=== PATIENT | female | born 1975 | race African-American/Black ===

== ENCOUNTER 2019-04-18 05:29 | Observation (INO) | payer OTHER ==
[~2019-04-18] VITALS: Ht 177.8 cm; Wt 74.8 kg
[2019-04-18] VITALS (15 sets, daily range): BP systolic 102–135; BP diastolic 54–93
[~2019-04-18 05:29] MED LIST: AMBIEN5 MG ORAL; BENADRYL25 MG ORAL; SYNTHROID100 MCG ORAL
[2019-04-18] MEDS ORDERED: Zemuron 50mg/5ml Inj IV ONE (06:28)
[2019-04-18] MEDS ORDERED: Chloraseptic Spray 20mL Bottle ORAL PRN (06:30)
[2019-04-18] MEDS ORDERED: HYDROmorphone 1mg/ml Carpuject SUBQ PRN (06:30)
[2019-04-18] MEDS ORDERED: LR 1000ml 1,000 ML IVLG SCH (06:32)
--- NOTE | 2019-04-18 06:33 | Anethesia Preoperative Eval ---
Anesthesia Pre-op PMH/ROS General Date of Evaluation: Apr 18, 2019 Time of Evaluation: 07:06 Anesthesiologist: Brien ASA Score: ASA 2 Mallampati Score Class I : Soft palate, uvula, fauces, pillars visible Class II: Soft palate, uvula, fauces visible Class III: Soft palate, base of uvula visible Class IV: Only hard plate visible Mallampati Classification: Class II Surgeon: Kenisha Diagnosis: Neck Pain Surgical Procedure: ACDF C5-6 Anesthesia History: none Family History: no anesthesia problems Allergies: Coded Allergies: No Known Allergies (Unverified , 04/17/19) Medications: see eMAR Patient NPO?: Yes NPO Date: Apr 17, 2019 NPO Time: 2344 Past Medical History Neurologic/Psychiatric: Reports: depression/anxiety Endocrine: Reports: hypothyroidism PSxH Narrative: Knee Sx, Cervical Spine SX Anesthesia Pre-op Phys. Exam Physician Exam Last Vital Signs Date Time Temp Pulse Resp B/P (MAP) Pulse Ox O2 Delivery O2 Flow Rate FiO2 04/18/19 06:08 Room Air 04/18/19 06:05 97.6 65 18 123/79 (94) 98 Constitutional: NAD Neurologic: CN 2-12 intact Cardiovascular: RRR Respiratory: CTA Gastrointestinal: S/NT/ND Airway Exam Mallampati Score: Class II MO: full ROM: full Teeth: intact Anesthesia Pre-op A/P Labs Urine Test Test 04/18/19 05:40 Urine HCG, Qualitative Pending Risk Assessment & Plan Assessment: ASA 2 Plan: GA, SED, GlideScope Go Status Change Before Surgery: No Pre-Antibiotics Dru Grams Ancef IV Given Within 1 Hr of Incision: Yes Time Given: 07:36 Dennys Zaman MD Apr 18, 2019 06:33
[2019-04-18] MEDS ORDERED: Bacitracin 50000 Units Vial ONE (06:36)
[2019-04-18] MEDS ORDERED: Thrombin 5000 units TOPIC ONE ×2 (06:36→07:20)
[2019-04-18] MEDS ORDERED: Bupivacaine 0.5% Inj 30 ml vial INJ ONE (06:36)
[2019-04-18] MEDS ORDERED: Gelfoam Size TOPIC ONE (06:36)
[2019-04-18] MEDS ORDERED: Sodium Chloride 10ml vial INJ ONE (06:44)
[2019-04-18] MEDS ORDERED: Lidocaine 1% MPF 10mg/ml 5ml ONE (06:44)
[2019-04-18] MEDS ORDERED: Dexamethasone 4mg/ml vial ONE (06:44)
[2019-04-18] MEDS ORDERED: Lidocaine 1% Plain 30 ml INJ ONE (06:44)
[2019-04-18] MEDS ORDERED: fentaNYL 100 mcg/2 mL IV PRN (06:45)
[2019-04-18] MEDS ORDERED: Hydromorphone 0.5mg/0.5ml inj IVP PRN (06:45)
[2019-04-18] MEDS ORDERED: LORazepam Inj 2mg/ml 1ml IV PRN (06:45)
[2019-04-18] MEDS ORDERED: Ketorolac 30mg Inj IV PRN ×2 (06:45)
[2019-04-18] MEDS ORDERED: Meperidine 50mg/ml Inj(FOR RIGORS ONLY) IVP PRN (06:45)
[2019-04-18] MEDS ORDERED: oxyCODONE HCL/Acetaminophen 5/325mg ORAL PRN (06:45)
[2019-04-18] MEDS ORDERED: HYDROcodone/Acetamin 5/325 tab ORAL PRN (06:45)
[2019-04-18] MEDS ORDERED: DiphenhydrAMINE 50mg/ml Inj IVP PRN (06:45)
[2019-04-18] MEDS ORDERED: Midazolam 2mg/2ml Inj IVP PRN (06:45)
[2019-04-18] MEDS ORDERED: Atropine Sulfate 0.4mg/ml inj IVP PRN (06:45)
[2019-04-18] MEDS ORDERED: HYDROcodone/Acetamin 7.5/325 tab ORAL PRN (06:45)
[2019-04-18] MEDS ORDERED: Acetaminophen (Non formulary) 100 ML IV ONE (06:45)
[2019-04-18] MEDS ORDERED: fentaNYL 100 mcg/2 mL IV ONE ×2 (06:48→08:25)
[2019-04-18] MEDS ORDERED: LR 1000ml ONE (07:00)
[2019-04-18] MEDS ORDERED: ceFAZolin sod 1 GM in NS 55 ML IVPB ONE (07:00)
[2019-04-18] MEDS ORDERED: Propofol 1,000mg/ 100ml btl IV ONE (07:00)
[2019-04-18] MEDS ORDERED: Dexamethasone 20mg/5ml IVP ONE (07:00)
[2019-04-18] MEDS ORDERED: Labetalol 5mg/ml 20ml vial IV ONE (07:00)
[2019-04-18] MEDS ORDERED: Sterile Water Irrig 1000ml IRRIG ONE (07:00)
--- NOTE | 2019-04-18 07:06 | Pre-Procedure Note/Attestation ---
Pre-Procedure Note/Attestation Complete Prior to Procedure Planned Procedure: not applicable Procedure Narrative: Removal C5-C6 ADR. ACDF C5-C6 with anterior internal plate fixation. Attestation I attest that I discussed the nature of the procedure; its benefits; risks and complications; and alternatives (and the risks and benefits of such alternatives ), prior to the procedure, with the patient (or the patient's legal appeals representative). I attest that, if there was a reasonable possibility of needing a blood transfusion, the patient (or the patient's legal appeals representative) was given the [facility] standardized written summary, pursuant to the Facundo Damien Blood Safety Act ([place] Health and Safety Code # 1645, as amended). I attest that I re-evaluated the patient just prior to the surgery and that there has been no change in the patient's H&P, except as documented below: Herb De MD Apr 18, 2019 07:06
--- NOTE | 2019-04-18 07:07 | Immediate Post-Op Evaluation ---
Immediate Post-Op Evalulation Immediate Post-Op Evalulation Procedure: C5-6 ACDF Date of Evaluation: Apr 18, 2019 Time of Evaluation: 10:09 IV Fluids: 900 LR Blood Products: 0 Estimated Blood Loss: 25 Urinary Output: 0 Blood Pressure Systolic: 118 Blood Pressure Diastolic: 93 Pulse Rate: 82 Respiratory Rate: 16 O2 Sat by Pulse Oximetry: 100 Temperature (Fahrenheit): 97.3 Pain Score (1-10): 2 Nausea: No Vomiting: No Complications 0 Patient Status: awake, reacts, patent, extubated, none Hydration Status: adequate Dru Grams Ancef IV Given Within 1 Hr of Incision: Yes Time Given: 07:36 Dennys Zaman MD Apr 18, 2019 07:07
[2019-04-18] MEDS ORDERED: NS Irrig 1000ml IRRIG ONE (07:11)
[2019-04-18] MEDS ORDERED: Neostigmine 1mg/ml 10ml Inj ONE (08:57)
[2019-04-18] MEDS ORDERED: Glycopyrrolate 0.2mg/ml 1ml Vial ONE (08:57)
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
--- NOTE | 2019-04-18 09:35 | Brief Operative Note ---
Immediate Post Operative Note Operative Note Pre-op Diagnosis: Post trauma ADR instability Procedure: Operation through scar tissue Removal ADR ACDF Anterior internal plate fixation. SSEP Xray Magnification Post-op Diagnosis: same as pre-op Findings: consistent w/pre-op dx studies Surgeon: Kenisha GO Additional Surgeons: Frank GO Anesthesiologist: Austyn GO Anesthesia: general Specimen: yes Complications: none Condition: stable Fluids: anesthesia Estimated Blood Loss: minimal Drains: none Implant(s) used?: Yes Herb De MD Apr 18, 2019 09:35
[2019-04-18] MEDS ORDERED: Naloxone 0.4mg/ml Inj IVP PRN (09:45)
--- NOTE | 2019-04-18 11:30 | NUR ---
NURSE NOTES: Received patient from PACU via bed to 311-2, in stable condition. Report received from Indy EATON. O2 2L NC in place, no distress. IVF infusing to LH as ordered. Anterior surgical neck dressing CDI, ice pack applied. Bilateral SCDS on. CMS+, hand grasps, pedal pushes, equal strong, skin warm, no NT. Pain 6/10 to posterior upper back area, will medicate as ordered. No NV. Will start clear liquid diet. Reoriented patient to room and call light for safety. Bed in lowest position, will continue to monitor.
[2019-04-18] MEDS: D5 1/2NS 1,000 ML IV SCH ×2 (12:15→23:02)
--- NOTE | 2019-04-18 12:20 | Diagnostic Imaging Report ---
Indication: Intraoperative imaging COMPARISON: None FINDINGS: Multiple fluoroscopic images were obtained intraoperatively. Localization images followed by anterior discectomy and fusion at C5-6 demonstrated. IMPRESSION: Intraoperative imaging as described above
[2019-04-18] MEDS: HYDROmorphone 1mg/ml Carpuject SUBQ PRN ×3 (12:45→23:14)
--- NOTE | 2019-04-18 13:15 | Operative Note - Dictated ---
DATE OF OPERATION: 04/18/2019 PRIMARY SURGEON: Herb De, Ph.D., M.D. SOIL CHECKER SURGEON: Gregorio Marie M.D. ANESTHESIOLOGIST: Dennys Zaman M.D. ANESTHESIA: General with intubation. 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 OPERATIVE PROCEDURE: Operation a scar tissue. Removal of artificial disc replacement C5-C6. Interbody reconstruction with 6 mm titanium interbody graft with bioactive material placement. Anterior internal plate fixation C5-C6. SSEP monitoring high-powered dissection magnification. Intraoperative fluoroscopy interpreted by surgeons. ESTIMATED BLOOD LOSS: Minimal. SPECIMEN: Removed artificial disc to pathology, gross only. COMPLICATIONS: None. POSTOP CONDITION: Good/stable. PROCEDURE IN DETAIL: The patient was brought to the operating room and in the supine position, general anesthesia with intubation was induced. After appropriately positioning and administration of IV Decadron and antibiotics 30 minutes prior to incision time. The correct level for incision placement was determined with a marker taped to the contralateral (right) aspect of the neck and cross-table image obtained and interpreted by surgeon, marking the appropriate interval for incision placement. Position for incision was marked with a sterile marking pen on the left lateral aspect of the neck over the appropriate interval. Marker on the right side neck was removed, the anterior cervical spine was sterilely prepped and draped free in usual sterile fashion. A transverse incision in the skin fold as appropriately marked was sharply placed through dermis and epidermis. Electrocautery dissection was carried through the subcutaneous tissue to the level of the platysmas muscle that was identified, isolated, and transected in line with the incision. Blunt dissection was carried medial to the left sternocleidomastoid muscle and the carotid sheath through the deep cervical and pretracheal fascia. Scar tissue was encountered-dense anterior to the cervical spine. Elevation was undertaken right and left of midline over the artificial disc replacement that was 3 mm subluxed anteriorly at the inferior C5 vertebral body interval. Moderate osteophyte was also formed anterior C5 vertebral body. The plastic spacer between the cephalad and inferior artificial disc plates was drilled to a depth of 1/2. Utilizing an osteotome, the interval was developed between the cephalad and caudad plates, bone interface. The cephalad plate was loose. The artificial disc replacement was removed en bloc without complications. SSEP monitoring stable. Under high-powered magnification, the posterior osteophyte noted on a preoperative basis was removed. No dural tears or leaks noted at any time during the procedure. SSEP monitoring normal at all times. Wound was irrigated with antibiotic-containing saline. The appropriate trial was utilized with determination for 6 mm titanium implant. The appropriate implant was opened under sterile conditions, packed with osteopromotive material (Bio-4). The graft was introduced into position under direct high-powered magnification observation. Cross-table image was obtained demonstrating excellent alignment and positioning. The implant introducer with a noted stop was removed. The implant was noted to encounter sunk 1 mm from the anterior aspect of the C5/C6 vertebral bodies. Prior to implant introduction, the anterior osteophyte on the inferior C5 was removed with Midas Adán bur dissection. Wound was irrigated with antibiotic-containing saline. Anterior internal plate fixation was undertaken with 14 mm screws in a compressive fashion. AP and lateral radiographs were obtained and recorded demonstrating excellent alignment and position. The patient is stable. Exploration of the wound did not reveal any obvious excoriation or laceration of vital structures. Wound was re-irrigated with antibiotic-containing saline. FloSeal applied. Sequential reapproximation of the platysmas muscle and subcuticular closure of the dermis/epidermis. Surgical strips placed transversely followed with a sterile bandage applied and maintained in place with tape. The patient was awakened, extubated in the operating room, and transported to postop recovery in good stable condition. Herb De M.D. DR: CARMEN JOB#: [id number] CC:
--- NOTE | 2019-04-18 13:45 | NUR ---
PT EVALUATION NOTE Patient seen for initial evaluation, see complete evaluation for details. Patient presents with supervised/SBA with bed mobility, transfers and ambulation. Patient instructed in proper log roll technique for in/OOB and in cervical precautions. Patient will benefit from skilled inpatient PT intervention to address bed mobility, transfers and ambulation including stair training and for education in cervical precautions. Anticipate discharge home once medically cleared by MD. No DME needs identified at this time. Addendum: 04/18/19 at 1441 by LATANYA BRAVO PT Amended: Links added.
[2019-04-18] MEDS: oxyCODONE 5mg IR tab ORAL PRN ×2 (15:14→20:40)
--- NOTE | 2019-04-18 17:30 | NUR ---
NURSE NOTES: Patient up ambulating in halls with PT x2 and ambulated to bathroom with RN, multiple times. RN instructed patient on proper transfer technique using log rolling to maintain proper alignment. Gait steady.
[2019-04-18] MEDS: ceFAZolin sod 1 GM in D5W 55 ML IV SCH ×2 (17:34→23:33)
--- NOTE | 2019-04-18 19:55 | NUR ---
HAND-OFF: Report given to Felicia HADDAD.
--- NOTE | 2019-04-18 19:55 | NUR ---
N[facility]SE NOTES:[facility] Patient c/o of pain posterior upper back pain rates 3/ . will medicate as ordered CONRAD g#18 with D51/2 NS at 100 cc/hr infusing well. no s/s of distress noted.anterior neck dressing C/D/I Ice pack in place. Hand grasp , pedal pulses equal strong . skin is warm . Patient refused scds at this time .Patient ambulated to bathroom. safety / fall Implemented . call light within reach . bed in low position . bed alarm active Addendum: 04/19/19 at 0257 by GABY COLON LVN Patient instructed in proper log roll technique. patient verbalized her understanding. will continue to monitor.
[2019-04-19] VITALS: BP 120/77
[2019-04-19 04:00] VITALS: BP 123/71
[2019-04-19] MEDS: HYDROmorphone 1mg/ml Carpuject SUBQ PRN ×2 (05:03→09:38)
[2019-04-19] MEDS: D5 1/2NS 1,000 ML IV SCH (05:04)
[2019-04-19] MEDS: oxyCODONE 5mg IR tab ORAL PRN ×2 (06:19→12:43)
[2019-04-19] MEDS: ceFAZolin sod 1 GM in D5W 55 ML IV SCH (06:38)
--- NOTE | 2019-04-19 07:10 | NUR ---
HAND-OFF: Report given to Carissa Daly Patient in stable conditon.
--- NOTE | 2019-04-19 07:15 | NUR ---
NURSE NOTES: Report received from Felicia HADDAD, rounds made. Patient resting in semi-fowlers position in bed. Alert, oriented x4, calm. No distress on RA. IVF (D5 1/2 at 100 ml/hr to left hand, site asymptomatic. Anterior neck dressing CDI, ice pack applied to anterior and posterior neck. CMS +, skin warm, moves all extremities, no NT, pulses palpable, grasps/pushes equal/strong. Encouraged IS (patient demonstrated correct use, up to 2000 ml), able to cough to clear throat, instructed patient to expectorate if needed. Bilateral SCDs off. Denies need for pain medication at this time, no NV. Call light in reach, bed in lowest position, will continue to monitor.
--- NOTE | 2019-04-19 07:48 | 48 Hour Post Anesthesia Eval ---
Post Anesthesia Evaluation Procedure: C5-6 ACDF Date of Evaluation: Apr 19, 2019 Time of Evaluation: 07:47 Blood Pressure Systolic: 128 0: 76 Pulse Rate: 68 Respiratory Rate: 20 Temperature (Fahrenheit): 97.6 O2 Sat by Pulse Oximetry: 98 Airway: patent Nausea: No Vomiting: No Pain Intensity: 2 Hydration Status: adequate Cardiopulmonary Status: stable Mental Status/LOC: patient returned to baseline Follow-up Care/Observations: n/a Post-Anesthesia Complications: none Follow-up care needed: ready to discharge Raad Powers MD Apr 19, 2019 07:48
[2019-04-19 08:00] VITALS: BP 129/79
--- NOTE | 2019-04-19 08:00 | Progress Note ---
DATE: 04/19/2019 ACUTE PAIN MANAGEMENT PHYSICIAN PROGRESS NOTE MEDICATIONS: Medication administration record reviewed. Medications include Tylenol, Mylanta, Soma, Catapres, Valium, Benadryl, Pepcid, Dilaudid, Zofran, oxycodone, Chloraseptic spray, Phenergan. LABORATORY STUDIES: No interval laboratory studies. VITAL SIGNS: Afebrile, pulse 77, respirations 18, blood pressure 123/71, oxygen saturation 98% on room air. I spent over sixty minutes in consultation today. I saw the patient at the bedside with the nurse, Marcial. Examination of the patient's cervical spine wound shows dressing clean and dry. The patient is neurologically intact grossly. She has been able to ambulate in and out of bed frequently to the restroom with minimal assistance. She is breathing, swallowing, and phonating within normal limits. The patient has been using her topical Chloraseptic spray with good relief. The patient has very smartly alternating her narcotic analgesics for excellent efficacy. She has used p.r.n. Dilaudid injections along with p.r.n. oxycodone instant release, along with oral Valium to provide adequate analgesia to be functional. She is tolerating advancing diet without difficulties. She denies any shortness of breath or chest pain. She appears non-toxic. I did leave the patient a prescription for oxycodone instant release and Soma for outpatient usage. The patient will arrange with her regular outpatient pharmacy for dispensing. The patient is very compliant with excellent efforts using her incentive spirometer. The patient has good social support with friends at home who will assist with activities of daily living, and provide transportation to home later today. Overall, the patient is recovering extremely well after revision cervical spine instrumentation surgery today. I see no contraindication for discharge trial home whenever the patient's ride is available. The patient will follow up with Dr. De in his outpatient surgical clinic for followup. Mac Fuentes M.D. DR: SONJA JOB#: [id number] CC:
--- NOTE | 2019-04-19 08:45 | NUR ---
PT NOTE Patient demonstrates independent functional mobility with bed mobility, transfers and ambulation on level ground and stairs. No further skilled inpatient PT intervention warranted, patient discharged from PT. Patient cleared to ambulate with nursing supervision in Carissa bass RN notified. Addendum: 04/19/19 at 1008 by LATANYA BRAVO PT Amended: Links added.
[2019-04-19 12:00] VITALS: BP 115/77
[2019-04-19] MEDS ORDERED: CARISOPRODOL350 MG ORAL ×2 (14:38→14:41)
[2019-04-19] MEDS ORDERED: OXYCODONE HCL5 MG ORAL ×2 (14:42→14:43)
[2019-04-19] MEDS ORDERED: Tubing IV Secondary IV ONE (15:24)
[2019-04-19] MEDS ORDERED: D5 1/2NS 1000ml IV ONE ×2 (15:24)
--- NOTE | 2019-04-19 15:30 | NUR ---
NURSE NOTES: Discharge instructions and prescription x1 reviewed with patient, verbalized understanding. All belongings, discharge instructions, prescription x1 and home medication (pillbox picked up from pharmacy) given to patient. Left hand IV discontinued, no active bleeding. Anterior neck dressing remains CDI. Patient ambulated down to [facility] with RN, in stable condition. Discharged home at 1530 via [employer].
--- NOTE | 2019-04-19 15:30 | NUR ---
CRITICAL SYSTEMS TECHNICIANREGULATORY SUBMISSIONS SPECIALIST 43 Y/O FEMALE CAME [place] [facility] CC:C5-6 ACDF SI:C5-6 ACDF VS: BP 123/79, P 65, T 97.6, RR 18, SpO2 98 HCG-NEGATIVE IS:OXYCODONE 20mG PEPCID 20mg DILAUDID 1mg SUBQ CEFAZOLIN 55ml IV D5/NS x1L IV VALIUM 10mg ADMITTED TO 3E MED/SURG DCP: RETURN HOME
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
== END 2019-04-19 15:25 | disposition home or self-care (01) ==
LOC: SUR 05:29 → 3E 11:05 → INTOOBSV 11:05 → 3E 12:30
DX: T84.84XA Pain due to internal orthopedic prosthetic devices, implants and grafts, initial encounter (principal); M53.2X2 Spinal instabilities, cervical region; M53.82 Other specified dorsopathies, cervical region; E03.9 Hypothyroidism, unspecified; M19.90 Unspecified osteoarthritis, unspecified site; Z96.652 Presence of left artificial knee joint; Z90.89 Acquired absence of other organs; F32.9 Major depressive disorder, single episode, unspecified; X58.XXXA Exposure to other specified factors, initial encounter; Z79.899 Other long term (current) drug therapy
CPT/HCPCS: 22861; 36415; 72040; 76000; 81025; 86850; 86900; 86901; 87081; 97116; 97161; 97530; C1713; G0378; J0690; J1100; J1170; J1200; J2001; J2175; J2250; J2405; J2704; J2710; J3010; 94003; 94150